=== PATIENT | female | born 1955 | race Caucasian/White ===

== ENCOUNTER → 2019-12-12 10:11 | Outpatient (CLI) | payer MEDICARE, SELFPAY ==
--- NOTE | ~2019-12-12 | MM_ITS ---
EXAMINATION: MM scrn uriel implant BI w nayeli HISTORY: Screening mammogram TECHNIQUE: Craniocaudal and mediolateral oblique 3-D tomosynthesis images with implant displacement a nd synthetic 2-D images were generated. Craniocaudal and mediolateral oblique views of the breasts wi thout implant displacement were obtained using full field digital mammography. CAD analysis was submi tted and interpreted. COMPARISON: 12/08/2018, 09/08/2017, 05/10/2016 bilateral digital screening mammogram examinations BREAST PARENCHYMAL COMPOSITION: The breasts are heterogeneously dense, which may obscure small masses . FINDINGS: Status post bilateral augmentation mammoplasty. There is no evidence of suspicious mass, ca lcification, or architectural distortion to suggest malignancy in either breast. There has been no perez spicious interval change. IMPRESSION: 1. No mammographic evidence of malignancy. 2. Recommend routine screening mammography in one year. BI-RADS Category 1: Negative Reviewed, dictated and finalized at location A.
== END ==
DX: Z12.31 Encounter for screening mammogram for malignant neoplasm of breast (principal)
CPT/HCPCS: 77063; 77067

== ENCOUNTER → 2021-01-20 10:19 | Outpatient (CLI) | payer MEDICARE, SELFPAY ==
--- NOTE | ~2021-01-20 | MM_ITS ---
EXAMINATION: MM scrn uriel implant BI w nayeli HISTORY: Screening mammogram TECHNIQUE: Craniocaudal and mediolateral oblique 3-D tomosynthesis images with implant displacement a nd synthetic 2-D images were generated. Craniocaudal and mediolateral oblique views of the breasts wi thout implant displacement were obtained using full field digital mammography. CAD analysis was submi tted and interpreted. COMPARISON: 12/12/2019, 12/08/2018, 08/29/2017 bilateral implant screening mammogram examinations BREAST PARENCHYMAL COMPOSITION: The breasts are heterogeneously dense, which may obscure small masses . FINDINGS: Status post bilateral augmentation mammoplasty. There is no evidence of suspicious mass, ca lcification, or architectural distortion to suggest malignancy in either breast. There has been no perez spicious interval change. IMPRESSION: 1. No mammographic evidence of malignancy. 2. Recommend routine screening mammography in one year. BI-RADS Category 1: Negative Reviewed, dictated and finalized at location A. 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
== END ==
DX: Z12.31 Encounter for screening mammogram for malignant neoplasm of breast (principal)
CPT/HCPCS: 77063; 77067

== ENCOUNTER → 2022-04-14 11:29 | Outpatient (CLI) | payer MEDICARE, SELFPAY ==
--- NOTE | ~2022-04-14 | MMUS_ITS ---
EXAMINATION: MM diag uriel implant BI w nayeli, US breast BI complete HISTORY: Right breast mass TECHNIQUE: ML, MLO and CC implant displaced 3-D tomosynthesis images of both breasts were performed a nd synthetic 2-D images were generated. Implant ML, MLO and CC views of each breast. CAD analysis was submitted and interpreted. High resolution complete bilateral breast ultrasound examination includin g all 4 quadrants and subareolar area of each breast was performed. COMPARISON: January 20, 2021, December 12, 2019, December 08, 2018 bilateral implant screening mammogr am examinations BREAST PARENCHYMAL COMPOSITION: The breasts are extremely dense, which lowers the sensitivity of mamm ography. FINDINGS: MAMMOGRAPHIC FINDINGS: Status post bilateral augmentation mammoplasty. Large circumscribed mass noted in the mid inner lower right breast, measuring as much as 4.5 cm dimen valerie. No suspicious mass of either breast is noted otherwise but the very dense stroma may obscure masses. Bilateral complete ultrasound examination was performed. ULTRASOUND: Right breast: There is a large circumscribed solid mass with prominent vascularity on color flow imaging, measuring up to 1.5 cm anteroposterior by 5 cm. The soft tissue mass abuts the implant. Ultrasound-guided biop sy is recommended. No suspicious mass or shadowing of either breast is noted otherwise. IMPRESSION: 1. Approximately 1.5 x 5 cm vascular solid mass of right breast at 6:00 2 cm from nipple 2. Ultrasound-guided biopsy is recommended. BI-RADS category 4, suspicious findings. Dr. Delatorre telephoned the report and ultrasound-guided biopsy recommendation on April 14, 2022 at 13 25 hours to voicemail at [phone]. Reviewed, dictated and finalized at location A. 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 Approximately 1.5 x 5 cm vascular solid mass of right breast at 6:00 2 cm fr om nipple 2. Ultrasound-guided biopsy is recommended. BI-RADS category 4, suspicious findings. Dr. Delatorre telephoned the report and ultrasound-guided biopsy recommendation on [facility]2022 at 1325 hours to voicemail at [phone]. IMPRESSION: 1. Approximately 1.5 x 5 cm vascular solid mass of right breast at 6:00 2 cm fr om nipple 2. Ultrasound-guided biopsy is recommended. BI-RADS category 4, suspicious findings. Dr. Delatorre telephoned the report and ultrasound-guided biopsy recommendation on F ebruary 2022 at 1325 hours to voicemail at [phone].
== END ==
DX: N63.10 Unspecified lump in the right breast, unspecified quadrant (principal); R92.8 Other abnormal and inconclusive findings on diagnostic imaging of breast
CPT/HCPCS: 76641; 77062; 77066; G0279